=== PATIENT | male | born 1960 | race Caucasian/White ===

== ENCOUNTER 2016-12-06 12:32 | Emergency (ER) | payer BC ==
--- NOTE | 2016-12-06 15:24 | DIAGNOSTIC IMAGING REPORT ---
PROCEDURE: XR CHEST 2 VIEW INDICATION: CHEST PAIN TECHNIQUE: PA and lateral view. COMPARISON: None. FINDINGS: Inspiration with mild elevation of the right hemidiaphragm and right basilar plate-like atelectasis. Cardiovascular structures are normal. Mild degenerative changes of the spine. IMPRESSION: 1. Poor inspiration with mild right basilar plate-like atelectasis
--- NOTE | 2016-12-06 15:49 | ED NURSING NOTES ---
Clinical Report - Nurses [address] [place] [address] 12/06/2016 12:35 Patient: LIZZETTE DO TRIAGE Triage time 13:55. Acuity: LEVEL 3. Chief Complaint: DIZZINESS, LIGHT HEADED and VERTIGO and (Onset 0700. Also c/o vomiting.). SEPSIS SCREEN: Sepsis Screen. Negative (no infection suspected/documented). YU COMA SCORE: Yu Coma Scale: 15- eyes open spontaneously (4); best verbal response- oriented x 4 (5); best motor response- obeys commands (6). --14:00 Juve Brown R.N. 13:55 12/06/16. BP: 147/103 (regular adult cuff) taken on the left arm, while lying. HR: 69. RR: 16. O2 saturation: 97% on room air. Temp: 97.6 F (oral). Pain level now: 0/10. --14:00 Juve Brown R.N. Weight: 90.7 kg stated. Height/Length: 70 inches Per Patient. BMI: 28.7. --13:57 Juve Brown R.N. Medications None. --13:57 Juve Brown R.N. Allergies No Known Drug Allergy. --13:57 Juve Brown R.N. History Arrived by private vehicle. Historian: patient. Accompanied by family. SOCIAL HX: Never smoker. History of drug use: marijuana. (daily). No alcohol use. ABUSE ASSESSMENT: No report of abuse. --14:00 Juve Brown R.N. PROBLEMS: Vertigo. --13:56 Juve Brown R.N. Hypertension. --13:57 Juve Brown R.N. ADDITIONAL SURGERIES: Neck Surgery. --13:57 Juve Brown R.N. Interventions ID band on patient. To treatment room. --14:00 Juve Brown R.N. NURSING PROGRESS NOTES 14:10 12/06/16. EKG time: (1407). EKG was performed by a naila and shown to the PA. --14:10 Viviran Tess 14:15 12/06/2016 Site #1 started via IV in the right hand with an 20g angiocath, with aseptic technique and good blood return; one attempt. Blood drawn: rainbow set. Labeled in the presence of the patient and sent to the lab. Saline lock flushed with 10 mL saline. --14:21 Juve Brown R.N. 15:40 12/06/2016 Meclizine PO 50 mg given. Confirmed 5 rights and sedative warning given. --15:40 Gerda Sahu R.N. 15:59 12/06/2016 Valium (Diazepam) PO Tablets 2.5 mg given. Allergies verified, confirmed 5 rights and sedative warning given to the patient and patient's family. --15:59 Jazmine Welsh R.N. 15:00 12/06/16. BP: 130/80. HR: 77. RR: 16. O2 saturation: 97% on room air. Pain level now: 0/10. --16:18 Juve Brown R.N. 16:19 12/06/2016 Site #1 removed upon discharge. Catheter intact. Pressure dressing applied. --16:19 Jazmine Welsh R.N. DISPOSITION / DISCHARGE Departure time: 1615. Condition at departure: improved and stable. No learning barriers present. Discharge instructions provided and reviewed with the patient. Reviewed warnings. Reviewed medication(s). Patient verbalized understanding. Written instructions provided in Maltese. The patient was discharged by the physician mobile unit assistant. He was discharged home and accompanied by family. He left the Emergency Department ambulatory and via private vehicle. Family member driving. --16:17 Juve Brown R.N. 15:30 12/06/16. BP: 142/90. HR: 78. RR: 16. O2 saturation: 97% on room air. Temp: 97.6 F (oral). Pain level now: 0/10. --16:17 Juve Brown R.N. Locked/Released at 12/06/2016 16:20 by Jazmine Welsh R.N.
--- NOTE | 2016-12-06 15:49 | ED CLINICAL REPORT ---
Clinical Report - Physicians/Mid Levels [facility] [address] [place] [address] 12/06/2016 12:35 Patient: LIZZETTE DO Time Seen: 14:14 Dec 06 2016. Arrived- By private vehicle. Historian- patient. HISTORY OF PRESENT ILLNESS Chief Complaint: vertigo/ diziness. This started just prior to arrival and is still present. No loss of appetite or muscle aches. Denies sleep problem. (patient with dizziness since this morning, worsened with standing with sensation of spinning in the room. This has happened in the past, 2 months previously lasting about a half a day. The symptoms worsen with standing. This has happened in the years previously. Patient does not have a steady primary care provider, was previously diagnosed with high blood pressure, however is currently not medicated.). REVIEW OF SYSTEMS No sore throat, nausea, diarrhea or headache. No difficulty with ambulation. All systems otherwise negative, except as recorded above. PAST HISTORY Problems: Hypertension. Vertigo. Additional Surgeries: Neck Surgery. Medications: None. Allergies: No Known Drug Allergy. SOCIAL HISTORY Never smoker. History of drug use: marijuana. No alcohol use. ADDITIONAL NOTES The nursing notes have been reviewed. PHYSICAL EXAM Vital Signs: 12/06/2016 13:55 BP: 147/103. HR: 69. RR: 16. O2 saturation: 97%. Temp: 97.6 F. Pain level now: 0/10. Appearance: Alert. No acute distress. Eyes: Pupils equal, round and reactive to light. Eyes normal inspection. ENT: Ears normal. Nose normal. CVS: Normal heart rate and rhythm. Heart sounds normal. Respiratory: No respiratory distress. Breath sounds normal. Chest nontender. No decreased air movement. Abdomen: Soft. Bowel sounds normal. Back: Normal inspection. No CVA tenderness. Neuro: Oriented X 3. No motor deficit. No sensory deficit. LABS, X-RAYS, AND EKG EKG: EKG time: (1407). No acute process. No acute ischemia. Rate: 68. Normal P waves. Normal ELEAZAR. Normal QRS complex. Normal axis. Normal ST and T waves and QT. The study has been interpreted contemporaneously. The study has been independently viewed by me. The EKG appears to be a good tracing. Chest X-ray: (IMPRESSION: 1. Poor inspiration with mild right basilar plate-like atelectasis Electronically Final signed by:Montez Gomez MD 12/06/2016 3:24:32 PM). Laboratory Tests: CBC w Diff: (KEVIN: 12/06/2016 14:15) ( [facility] 12/06/2016 14:37) Final results Test Result Flag Units (Reference) WHITE BLOOD COUNT 14.0 H K/uL (4.5-11.5) RED BLOOD COUNT 4.97 M/uL (4.50-5.90) HEMOGLOBIN 14.6 gm/dL (13.5-17.5) HEMATOCRIT 44.2 % (41.0-53.0) MEAN CELL VOLUME 89 fL (80-100) MEAN CORPUSCULAR HGB 29 pg (26-34) MEAN CORPUSCULAR HGB CONC 33 g/dL (31-37) RED CELL DISTRIBUTION WIDTH 13.7 % (11.6-14.8) PLATELET COUNT 240 K/uL (150-400) NEUTROPHIL % 93.7 H % (50-75) LYMPH % 3.5 L % (25-40) MONO % 2.1 L % (3-14) EOSINOPHIL % 0.2 % (0-4) BASOPHIL % 0.5 % (0-2) CHEM 13 PANEL: (KEVIN: 12/06/2016 14:15) ( [facility] 12/06/2016 14:53) Final results Test Result Flag Units (Reference) GLUCOSE 136 H mg/dL (70-110) BUN 16 mg/dL (7-18) CREATININE 0.9 mg/dL (0.6-1.3) Estimated GFR >60 mL/min Estimated GFR- >60 mL/min Note: Persistent reduction over 3 months in eGFR<60 mL/min/1.73 m2 defines CKD. Patients with eGFR values>=60 mL/min/1.73 m2 may also have CKD if evidence ofpersistent proteinuria. Additional information may be foundat www.kidney.org. SODIUM 143 mmol/L (136-145) POTASSIUM 3.9 mmol/L (3.5-5.1) CHLORIDE 106 mmol/L (98-107) CARBON DIOXIDE 27 mmol/L (21-32) CALCIUM 8.6 mg/dL (8.5-10.1) TOTAL PROTEIN 7.5 g/dL (6.4-8.2) ALBUMIN 3.9 g/dL (3.3-5.0) BILIRUBIN, TOTAL 0.4 mg/dL (0.0-1.0) ALKALINE PHOSPHATASE 60 U/L (46-116) AST (SGOT) 19 U/L (15-37) ALT (SGPT) 33 U/L (12-78) CPK 110 U/L (24-260) MAGNESIUM 2.1 mg/dL (1.8-2.4) TROPONIN I <0.05 L ng/mL (0.00-1.5) TROPONIN REFERENCE RANGE:<0.1 NEGATIVE0.1-1.5 INDETERMINANT>1.5 POSITIVE . PROGRESS AND PROCEDURES Course of Care: Patient in the emergency department with what appears to be vertigo, especially emotionally related. Patient with no other organic source. Workup completed in the emergency department included a cardiac panel, EKG, troponin, chest x-ray. Patient is encouraged follow up with a primary care provider. This is not the first incident of his vertigo-like symptoms, cessation of himself or at times room spinning around him. The symptoms do improve as he said some ways down. I do not suspect intracranial hemorrhage, negative neuro exam. NO HARKINS. 12/06/2016 15:30 BP: 142/90. HR: 78. RR: 16. O2 saturation: 97%. Temp: 97.6 F. Pain level now: 0/10. Patient is stable. Patient/family counseled. Disposition: Discharged. Condition: good. CLINICAL IMPRESSION Vertigo. Hypertension. INSTRUCTIONS Do not work (until 12/10 unless symptoms improve and patient feeling better). (Address: [facility] [place] [address] ). Prescription Medications: Meclizine 25 mg: Take 1 tablet orally every 8 hours as needed for dizziness. Dispense thirty (30). No refills. Follow-up with: Abdirizak Cassidy MD, [facility], , [facility], [address], [place], [address] Follow-up with: Abdulaziz Mooney MD, [facility], , [facility], [address] [place] [address] (Electronically signed by Precious Smith P.A.-C 12/06/2016 17:03)
--- NOTE | 2016-12-06 15:49 | ED ORDER SUMMARY ---
..... Patient: LIZZETTE DO OrderSheet [facility] VisitID: [id number] [place] [address] 56y, M Registration Date/Time: 12/06/2016 ORDER SHEET Weight: 90.7 kg (stated) Allergies: No Known Drug Allergy GENERAL ORDERS: EKG - ER Stat (13:56 12/06/2016 EKoroleva P.A.-C) (14:10 JAoerner) Band Lining Bander (Continuous) (13:56 12/06/2016 EKoroleva P.A.-C) (14:21 JSimbeck R.N.) Cardiac Panel Stat (13:57 12/06/2016 EKoroleva P.A.-C) (Ack 13:58 JAoerran) (14:21 JSimbeck R.N.) Chest 2V Urgent (14:51 12/06/2016 EKoroleva P.A.-C) (Ack 14:57 JAoerran) (15:40 LSullivan R.N.) MEDICATION ORDERS: Meclizine PO 50 mg (NOW) (15:05 12/06/2016 EKoroleva P.A.-C) (Ack 15:34 LSullivan R.N.) (15:40 LSullivan R.N.) Valium PO 2.5 mg (HIGH ALERT MEDICATION, NOW) (15:47 12/06/2016 EKoroleva P.A.-C) (15:59 LWhalen R.N.) IV FLUIDS: IV Saline Lock (13:57 12/06/2016 EKoroleva P.A.-C) (14:21 JSimbeck R.N.) ORDER SHEET NOTES: [Electronically signed by Jazmine Welsh R.N. (16:20 12/06/2016)] [Electronically signed by Precious SmithA.-C (17:03 12/06/2016)] [Electronically locked/signed by Jazmine Welsh R.N. (16:20 12/06/2016)]
--- NOTE | 2016-12-06 15:49 | ED ORDER SUMMARY ---
..... Patient: LIZZETTE DO OrderSheet [facility] VisitID: [id number] [place] [address] 56y, M Registration Date/Time: 12/06/2016 ORDER SHEET Weight: 90.7 kg (stated) Allergies: No Known Drug Allergy GENERAL ORDERS: EKG - ER Stat (13:56 12/06/2016 EKoroleva P.A.-C) (14:10 JAoerner) Commiss[employer] Production Supervisor (Continuous) (13:56 12/06/2016 EKoroleva P.A.-C) (14:21 JSimbeck R.N.) Cardiac Panel Stat (13:57 12/06/2016 EKoroleva P.A.-C) (Ack 13:58 JAoerran) (14:21 JSimbeck R.N.) Chest 2V Urgent (14:51 12/06/2016 EKoroleva P.A.-C) (Ack 14:57 JAoerran) (15:40 LSullivan R.N.) MEDICATION ORDERS: Meclizine PO 50 mg (NOW) (15:05 12/06/2016 EKoroleva P.A.-C) (Ack 15:34 LSullivan R.N.) (15:40 LSullivan R.N.) Valium PO 2.5 mg (HIGH ALERT MEDICATION, NOW) (15:47 12/06/2016 EKoroleva P.A.-C) (15:59 LWhalen R.N.) IV FLUIDS: IV Saline Lock (13:57 12/06/2016 EKoroleva P.A.-C) (14:21 JSimbeck R.N.) ORDER SHEET NOTES: [Electronically signed by Jazmine Welsh R.N. (16:20 12/06/2016)] [Electronically signed by Precious SmithA.-C (17:03 12/06/2016)] [Electronically locked/signed by Jazmine Welsh R.N. (16:20 12/06/2016)]
--- NOTE | 2016-12-06 15:49 | ED CLINICAL REPORT ---
Clinical Report - Physicians/Mid Levels [facility] [address] [place] [address] 12/06/2016 12:35 Patient: LIZZETTE DO Time Seen: 14:14 Dec 06 2016. Arrived- By private vehicle. Historian- patient. HISTORY OF PRESENT ILLNESS Chief Complaint: vertigo/ diziness. This started just prior to arrival and is still present. No loss of appetite or muscle aches. Denies sleep problem. (patient with dizziness since this morning, worsened with standing with sensation of spinning in the room. This has happened in the past, 2 months previously lasting about a half a day. The symptoms worsen with standing. This has happened in the years previously. Patient does not have a steady primary care provider, was previously diagnosed with high blood pressure, however is currently not medicated.). REVIEW OF SYSTEMS No sore throat, nausea, diarrhea or headache. No difficulty with ambulation. All systems otherwise negative, except as recorded above. PAST HISTORY Problems: Hypertension. Vertigo. Additional Surgeries: Neck Surgery. Medications: None. Allergies: No Known Drug Allergy. SOCIAL HISTORY Never smoker. History of drug use: marijuana. No alcohol use. ADDITIONAL NOTES The nursing notes have been reviewed. PHYSICAL EXAM Vital Signs: 12/06/2016 13:55 BP: 147/103. HR: 69. RR: 16. O2 saturation: 97%. Temp: 97.6 F. Pain level now: 0/10. Appearance: Alert. No acute distress. Eyes: Pupils equal, round and reactive to light. Eyes normal inspection. ENT: Ears normal. Nose normal. CVS: Normal heart rate and rhythm. Heart sounds normal. Respiratory: No respiratory distress. Breath sounds normal. Chest nontender. No decreased air movement. Abdomen: Soft. Bowel sounds normal. Back: Normal inspection. No CVA tenderness. Neuro: Oriented X 3. No motor deficit. No sensory deficit. LABS, X-RAYS, AND EKG EKG: EKG time: (1407). No acute process. No acute ischemia. Rate: 68. Normal P waves. Normal ELEAZAR. Normal QRS complex. Normal axis. Normal ST and T waves and QT. The study has been interpreted contemporaneously. The study has been independently viewed by me. The EKG appears to be a good tracing. Chest X-ray: (IMPRESSION: 1. Poor inspiration with mild right basilar plate-like atelectasis Electronically Final signed by:Montez Gomez MD 12/06/2016 3:24:32 PM). Laboratory Tests: CBC w Diff: (KEVIN: 12/06/2016 14:15) ( [facility] 12/06/2016 14:37) Final results Test Result Flag Units (Reference) WHITE BLOOD COUNT 14.0 H K/uL (4.5-11.5) RED BLOOD COUNT 4.97 M/uL (4.50-5.90) HEMOGLOBIN 14.6 gm/dL (13.5-17.5) HEMATOCRIT 44.2 % (41.0-53.0) MEAN CELL VOLUME 89 fL (80-100) MEAN CORPUSCULAR HGB 29 pg (26-34) MEAN CORPUSCULAR HGB CONC 33 g/dL (31-37) RED CELL DISTRIBUTION WIDTH 13.7 % (11.6-14.8) PLATELET COUNT 240 K/uL (150-400) NEUTROPHIL % 93.7 H % (50-75) LYMPH % 3.5 L % (25-40) MONO % 2.1 L % (3-14) EOSINOPHIL % 0.2 % (0-4) BASOPHIL % 0.5 % (0-2) CHEM 13 PANEL: (KEVIN: 12/06/2016 14:15) ( [facility] 12/06/2016 14:53) Final results Test Result Flag Units (Reference) GLUCOSE 136 H mg/dL (70-110) BUN 16 mg/dL (7-18) CREATININE 0.9 mg/dL (0.6-1.3) Estimated GFR >60 mL/min Estimated GFR- >60 mL/min Note: Persistent reduction over 3 months in eGFR<60 mL/min/1.73 m2 defines CKD. Patients with eGFR values>=60 mL/min/1.73 m2 may also have CKD if evidence ofpersistent proteinuria. Additional information may be foundat www.kidney.org. SODIUM 143 mmol/L (136-145) POTASSIUM 3.9 mmol/L (3.5-5.1) CHLORIDE 106 mmol/L (98-107) CARBON DIOXIDE 27 mmol/L (21-32) CALCIUM 8.6 mg/dL (8.5-10.1) TOTAL PROTEIN 7.5 g/dL (6.4-8.2) ALBUMIN 3.9 g/dL (3.3-5.0) BILIRUBIN, TOTAL 0.4 mg/dL (0.0-1.0) ALKALINE PHOSPHATASE 60 U/L (46-116) AST (SGOT) 19 U/L (15-37) ALT (SGPT) 33 U/L (12-78) CPK 110 U/L (24-260) MAGNESIUM 2.1 mg/dL (1.8-2.4) TROPONIN I <0.05 L ng/mL (0.00-1.5) TROPONIN REFERENCE RANGE:<0.1 NEGATIVE0.1-1.5 INDETERMINANT>1.5 POSITIVE . PROGRESS AND PROCEDURES Course of Care: Patient in the emergency department with what appears to be vertigo, especially emotionally related. Patient with no other organic source. Workup completed in the emergency department included a cardiac panel, EKG, troponin, chest x-ray. Patient is encouraged follow up with a primary care provider. This is not the first incident of his vertigo-like symptoms, cessation of himself or at times room spinning around him. The symptoms do improve as he said some ways down. I do not suspect intracranial hemorrhage, negative neuro exam. NO HARKINS. 12/06/2016 15:30 BP: 142/90. HR: 78. RR: 16. O2 saturation: 97%. Temp: 97.6 F. Pain level now: 0/10. Patient is stable. Patient/family counseled. Disposition: Discharged. Condition: good. CLINICAL IMPRESSION Vertigo. Hypertension. INSTRUCTIONS Do not work (until 12/10 unless symptoms improve and patient feeling better). (Address: [facility] [place] [address] ). Prescription Medications: Meclizine 25 mg: Take 1 tablet orally every 8 hours as needed for dizziness. Dispense thirty (30). No refills. Follow-up with: Abdirizak Cassidy MD, [facility], , [facility], [address], [place], [address] Follow-up with: Abdulaziz Mooney MD, [facility], , [facility], [address] [place] [address] (Electronically signed by Precious Smith P.A.-C 12/06/2016 17:03)
--- NOTE | 2016-12-06 15:49 | ED NURSING NOTES ---
Clinical Report - Nurses [place] [address] [place] [address] 12/06/2016 12:35 Patient: LIZZETTE DO TRIAGE Triage time 13:55. Acuity: LEVEL 3. Chief Complaint: DIZZINESS, LIGHT HEADED and VERTIGO and (Onset 0700. Also c/o vomiting.). SEPSIS SCREEN: Sepsis Screen. Negative (no infection suspected/documented). YU COMA SCORE: Yu Coma Scale: 15- eyes open spontaneously (4); best verbal response- oriented x 4 (5); best motor response- obeys commands (6). --14:00 Juve Brown R.N. 13:55 12/06/16. BP: 147/103 (regular adult cuff) taken on the left arm, while lying. HR: 69. RR: 16. O2 saturation: 97% on room air. Temp: 97.6 F (oral). Pain level now: 0/10. --14:00 Juve Brown R.N. Weight: 90.7 kg stated. Height/Length: 70 inches Per Patient. BMI: 28.7. --13:57 Juve Brown R.N. Medications None. --13:57 Juve Brown R.N. Allergies No Known Drug Allergy. --13:57 Juve Brown R.N. History Arrived by private vehicle. Historian: patient. Accompanied by family. SOCIAL HX: Never smoker. History of drug use: marijuana. (daily). No alcohol use. ABUSE ASSESSMENT: No report of abuse. --14:00 Juve Brown R.N. PROBLEMS: Vertigo. --13:56 Juve Brown R.N. Hypertension. --13:57 Juve Brown R.N. ADDITIONAL SURGERIES: Neck Surgery. --13:57 Juve Brown R.N. Interventions ID band on patient. To treatment room. --14:00 Juve Brown R.N. NURSING PROGRESS NOTES 14:10 12/06/16. EKG time: (1407). EKG was performed by a naila and shown to the PA. --14:10 Viviran Tses 14:15 12/06/2016 Site #1 started via IV in the right hand with an 20g angiocath, with aseptic technique and good blood return; one attempt. Blood drawn: rainbow set. Labeled in the presence of the patient and sent to the lab. Saline lock flushed with 10 mL saline. --14:21 Juve Brown R.N. 15:40 12/06/2016 Meclizine PO 50 mg given. Confirmed 5 rights and sedative warning given. --15:40 Gerda Sahu R.N. 15:59 12/06/2016 Valium (Diazepam) PO Tablets 2.5 mg given. Allergies verified, confirmed 5 rights and sedative warning given to the patient and patient's family. --15:59 Jazmine Welsh R.N. 15:00 12/06/16. BP: 130/80. HR: 77. RR: 16. O2 saturation: 97% on room air. Pain level now: 0/10. --16:18 Juve Brown R.N. 16:19 12/06/2016 Site #1 removed upon discharge. Catheter intact. Pressure dressing applied. --16:19 Jazmine Welsh R.N. DISPOSITION / DISCHARGE Departure time: 1615. Condition at departure: improved and stable. No learning barriers present. Discharge instructions provided and reviewed with the patient. Reviewed warnings. Reviewed medication(s). Patient verbalized understanding. Written instructions provided in Trinidadian. The patient was discharged by the physician orthotics assistant. He was discharged home and accompanied by family. He left the Emergency Department ambulatory and via private vehicle. Family member driving. --16:17 Juev Brown R.N. 15:30 12/06/16. BP: 142/90. HR: 78. RR: 16. O2 saturation: 97% on room air. Temp: 97.6 F (oral). Pain level now: 0/10. --16:17 Juve Brown R.N. Locked/Released at 12/06/2016 16:20 by Jazmine Welsh R.N.
--- NOTE | 2016-12-06 17:03 | ED MAR SUMMARY ---
..... Medication Administration Record [facility] [address] [place] [address] Patient: LIZZETTE DO Visit ID: [id number] 56y, M Weight: 90.7 kg Height/Length: 70 in BMI: 28.7 ALLERGIES: No Known Drug Allergy Given 15:40 12/06/2016 Gerda Sahu RIlene Medication Administered: MECLIZINE [PO], Dose: 50 mg PO. Medication Ordered: Meclizine PO 50 mg (NOW). Given 15:59 12/06/2016 Jazmine Welsh RAmairaniNAmairani Medication Administered: VALIUM [PO] (DIAZEPAM), Dose: 2.5 mg Tablets PO. Medication Ordered: Valium PO 2.5 mg (HIGH ALERT MEDICATION, NOW).
--- NOTE | 2016-12-06 17:03 | ED MAR SUMMARY ---
..... Medication Administration Record [facility] [address] [place] [address] Patient: LIZZETTE DO Visit ID: [id number] 56y, M Weight: 90.7 kg Height/Length: 70 in BMI: 28.7 ALLERGIES: No Known Drug Allergy Given 15:40 12/06/2016 Gerda Sahu RIlene Medication Administered: MECLIZINE [PO], Dose: 50 mg PO. Medication Ordered: Meclizine PO 50 mg (NOW). Given 15:59 12/06/2016 Jazmine Welsh RAmairaniNAmairani Medication Administered: VALIUM [PO] (DIAZEPAM), Dose: 2.5 mg Tablets PO. Medication Ordered: Valium PO 2.5 mg (HIGH ALERT MEDICATION, NOW).
--- NOTE | 2016-12-06 17:03 | ED MED RECONCILIATION SUMMARY ---
Patient: LIZZETTE DO Medication Reconciliation Report [facility] VisitID: [id number] [place] [address] 56y, M Registration Date/Time: 12/06/2016 Weight: 90.7 kg Height/Length: 70 in. BMI: 28.7 ALLERGIES: No Known Drug Allergy The patient's Home Medications are listed below: NONE. The source(s) of the original Home Medication information: Not obtained. The following Medications were given to the patient in the Emergency Department: Meclizine [PO] PO 50 mg, administered: 12/06/2016 3:40:00 PM Valium [PO] PO 2.5 mg, administered: 12/06/2016 3:59:00 PM The following Medications were prescribed to the patient: Meclizine 25 mg: Take 1 tablet orally every 8 hours as needed for dizziness. Dispense thirty (30). No refills. -- Precious Smith, PAmairaniAAmairani-C
--- NOTE | 2016-12-06 17:03 | ED DISCHARGE INSTRUCTIONS ---
Patient: LIZZETTE DO General Instructions [facility] VisitID: [id number] [place] [address] 56y, M Registration Date/Time: 12/06/2016 Vertigo. Hypertension. INSTRUCTIONS Do not work (until 12/10 unless symptoms improve and patient feeling better). (Address: [address] [place] [address] ). Prescription Medications: Meclizine 25 mg: Take 1 tablet orally every 8 hours as needed for dizziness. Dispense thirty (30). No refills. Follow-up with: Abdirizak Cassidy MD, [facility], , [facility] [address] [id number] Follow-up with: Abdulaziz Mooney MD, [facility], , [facility], [address] [place], [place] [id number] ADDITIONAL INFORMATION High Blood Pressure -- To Be Confirmed [No Tx] Your blood pressure was higher today than normal. Sometimes anxiety or pain can cause a temporary rise in blood pressure that later returns to normal. If your blood pressure is high on one measurement, this does not mean that you have hypertension (a chronic illness). However, you must have your blood pressure measured again within the next few days to find out if its still high. A normal blood pressure is 120/80 or less. The first (top) number is the "systolic" pressure. The second (bottom) number is the "diastolic" pressure. Hypertension exists when either the top number is 140 or higher, OR the bottom number is 90 or higher on repeated measurements. Blood pressure in the range of 120-140 (systolic) or 80-89 (diastolic) is considered "pre-hypertension". This means your are at risk for getting hypertension. You should have regular blood pressure checks to be sure your blood pressure is not rising. Home Care: Measure your blood pressure on 3 different days and write down the results. This can be done at your doctor's office or this facility. Some pharmacies and grocery stores offer automated blood pressure machines for your use. Follow Up: If your blood pressure is "high" (over 120/80) on 2 out of 3 days, you will need to follow up with your doctor for further evaluation and treatment. DO NOT PUT THIS OFF! Untreated high blood pressure increases the risk for heart attack, also known as acute myocardial infarction, or AMI, and stroke. It is a treatable condition. Get Prompt Medical Attention if any of the following occur: Chest pain or shortness of breath Severe headache Throbbing or rushing sound in the ears Nosebleed Sudden severe abdominal pain Extreme drowsiness, confusion or fainting Dizziness or vertigo (dizziness with spinning sensation) Weakness of an arm or leg or one side of the face Difficulty with speech or vision Vertigo [Unknown Cause] The "inner ear" is located behind the middle ear. It is part of the balance center of your body. Disease of the inner ear causes vertigo -- a false feeling of motion. It feels as if you or the room is spinning. A vertigo attack may cause sudden nausea, vomiting and heavy sweating. Severe vertigo causes a loss of balance and can cause you to fall. During vertigo, small head movements and changes in body position will often make the symptoms worse. The causes of vertigo include: Inflammation of the inner ear Disease of the nerves to the inner ear Movement of calcium particles in the inner ear Poor blood flow to the balance centers of the brain An episode of vertigo may last seconds, minutes or hours. Once you are over the first episode, it may never return. However, sometimes symptoms may recur off and on over several weeks or longer, depending on the cause. There may be ringing in the ears or hearing loss, which may be temporary or permanent. Home Care: If symptoms are severe, rest quietly in bed. Change positions very slowly. There is usually one position that will feel best, such as lying on one side or lying on your back with your head slightly raised on pillows. Do not drive or work with dangerous machinery for one week after symptoms go away, in case the symptoms suddenly return. Take medicine as prescribed to relieve your symptoms. Unless another medicine was prescribed for nausea, vomiting and vertigo, you may use [id number] motion sickness pills, such as meclizine (Bonine, Bonamine, Antivert) or dimenhydrinate (Dramamine). Follow Up with your doctor or as directed by our staff. Tell the doctor if your ears keep ringing, or if your hearing does not return to normal. Get Prompt Medical Attention if any of the following occur: Vertigo gets worse and is not controlled by medicine prescribed Repeated vomiting not relieved by medicine prescribed Increased weakness or fainting Severe headache or unusually drowsy or confused Weakness of an arm or leg or one side of the face Difficulty with speech or vision You have been given the following additional information: Hypertension, To Be Confirmed Vertigo, Unspecified Do not work (until 12/10 unless symptoms improve and patient feeling better). (Electronically signed by Precious Smith P.A.-C 12/06/2016 17:03)
--- NOTE | 2016-12-06 17:03 | ED MED RECONCILIATION SUMMARY ---
Patient: LIZZETTE DO Medication Reconciliation Report [facility] VisitID: [id number] [place] [address] 56y, M Registration Date/Time: 12/06/2016 Weight: 90.7 kg Height/Length: 70 in. BMI: 28.7 ALLERGIES: No Known Drug Allergy The patient's Home Medications are listed below: NONE. The source(s) of the original Home Medication information: Not obtained. The following Medications were given to the patient in the Emergency Department: Meclizine [PO] PO 50 mg, administered: 12/06/2016 3:40:00 PM Valium [PO] PO 2.5 mg, administered: 12/06/2016 3:59:00 PM The following Medications were prescribed to the patient: Meclizine 25 mg: Take 1 tablet orally every 8 hours as needed for dizziness. Dispense thirty (30). No refills. -- Precious Smith, PAmairaniAAmairani-C
--- NOTE | 2016-12-06 17:03 | ED DISCHARGE INSTRUCTIONS ---
Patient: LIZZETTE DO General Instructions [facility] VisitID: [id number] [place] [address] 56y, M Registration Date/Time: 12/06/2016 Vertigo. Hypertension. INSTRUCTIONS Do not work (until 12/10 unless symptoms improve and patient feeling better). (Address: [address] [place] [address] ). Prescription Medications: Meclizine 25 mg: Take 1 tablet orally every 8 hours as needed for dizziness. Dispense thirty (30). No refills. Follow-up with: Abdirizak Cassidy MD, [facility], , [facility] [address] [phone] Follow-up with: Abdulaziz Mooney MD, [facility], , [facility], [address] [place], [place] [phone] ADDITIONAL INFORMATION High Blood Pressure -- To Be Confirmed [No Tx] Your blood pressure was higher today than normal. Sometimes anxiety or pain can cause a temporary rise in blood pressure that later returns to normal. If your blood pressure is high on one measurement, this does not mean that you have hypertension (a chronic illness). However, you must have your blood pressure measured again within the next few days to find out if its still high. A normal blood pressure is 120/80 or less. The first (top) number is the "systolic" pressure. The second (bottom) number is the "diastolic" pressure. Hypertension exists when either the top number is 140 or higher, OR the bottom number is 90 or higher on repeated measurements. Blood pressure in the range of 120-140 (systolic) or 80-89 (diastolic) is considered "pre-hypertension". This means your are at risk for getting hypertension. You should have regular blood pressure checks to be sure your blood pressure is not rising. Home Care: Measure your blood pressure on 3 different days and write down the results. This can be done at your doctor's office or this facility. Some pharmacies and grocery stores offer automated blood pressure machines for your use. Follow Up: If your blood pressure is "high" (over 120/80) on 2 out of 3 days, you will need to follow up with your doctor for further evaluation and treatment. DO NOT PUT THIS OFF! Untreated high blood pressure increases the risk for heart attack, also known as acute myocardial infarction, or AMI, and stroke. It is a treatable condition. Get Prompt Medical Attention if any of the following occur: Chest pain or shortness of breath Severe headache Throbbing or rushing sound in the ears Nosebleed Sudden severe abdominal pain Extreme drowsiness, confusion or fainting Dizziness or vertigo (dizziness with spinning sensation) Weakness of an arm or leg or one side of the face Difficulty with speech or vision Vertigo [Unknown Cause] The "inner ear" is located behind the middle ear. It is part of the balance center of your body. Disease of the inner ear causes vertigo -- a false feeling of motion. It feels as if you or the room is spinning. A vertigo attack may cause sudden nausea, vomiting and heavy sweating. Severe vertigo causes a loss of balance and can cause you to fall. During vertigo, small head movements and changes in body position will often make the symptoms worse. The causes of vertigo include: Inflammation of the inner ear Disease of the nerves to the inner ear Movement of calcium particles in the inner ear Poor blood flow to the balance centers of the brain An episode of vertigo may last seconds, minutes or hours. Once you are over the first episode, it may never return. However, sometimes symptoms may recur off and on over several weeks or longer, depending on the cause. There may be ringing in the ears or hearing loss, which may be temporary or permanent. Home Care: If symptoms are severe, rest quietly in bed. Change positions very slowly. There is usually one position that will feel best, such as lying on one side or lying on your back with your head slightly raised on pillows. Do not drive or work with dangerous machinery for one week after symptoms go away, in case the symptoms suddenly return. Take medicine as prescribed to relieve your symptoms. Unless another medicine was prescribed for nausea, vomiting and vertigo, you may use rkwh-xyk-mobmijx motion sickness pills, such as meclizine (Bonine, Bonamine, Antivert) or dimenhydrinate (Dramamine). Follow Up with your doctor or as directed by our staff. Tell the doctor if your ears keep ringing, or if your hearing does not return to normal. Get Prompt Medical Attention if any of the following occur: Vertigo gets worse and is not controlled by medicine prescribed Repeated vomiting not relieved by medicine prescribed Increased weakness or fainting Severe headache or unusually drowsy or confused Weakness of an arm or leg or one side of the face Difficulty with speech or vision You have been given the following additional information: Hypertension, To Be Confirmed Vertigo, Unspecified Do not work (until 12/10 unless symptoms improve and patient feeling better). (Electronically signed by Precious Smith P.A.-C 12/06/2016 17:03)
== END 2016-12-06 16:00 | disposition home or self-care (01) ==
LOC: ED SRH 12:32
DX: R42 Dizziness and giddiness (principal); I10 Essential (primary) hypertension
CPT/HCPCS: 90100; 90616; 92610; 92720; 95059